=== PATIENT | female | born 1965 | race African-American/Black ===

== ENCOUNTER → 2020-04-21 | Outpatient (CLI) | payer BC ==
[~2020-04-21] MED LIST: AFRIN15 ML NS; BENTYL 20 MG TA20 M1 PO; CLARITIN10 M2 PO; FLEXERIL PO; FLONASE 0.05%50 MCG NASAL; LIORESAL 10 MG10 MG PO; MOBIC15 MG PO; ONDANSETRON HCL4 M2 PO
== END ==
LOC: CAT 11:14
DX: J32.9 Chronic sinusitis, unspecified (principal); M47.812 Spondylosis without myelopathy or radiculopathy, cervical region; M25.78 Osteophyte, vertebrae